=== PATIENT | male | born 1990 | race Hispanic/Latino ===

== ENCOUNTER 2019-11-13 12:26 | Emergency (ER) | payer SELFPAY ==
--- NOTE | ~2019-11-13 | XR_ITS ---
EXAMINATION: XR wrist RT min 3V INDICATION: Right wrist pain, initial encounter TECHNIQUE: Four views of the right wrist are obtained. COMPARISON: None available FINDINGS: There is a transverse lucency in the proximal pole of the scaphoid, consistent with acute, nondisplaced fracture No additional acute osseous abnormality is identified. Wrist soft tissue swelli ng is present. The joint spaces are maintained. IMPRESSION: 1. Acute nondisplaced fracture of the proximal scaphoid. Reviewed, dictated and finalized at location A.
--- NOTE | 2019-11-13 12:32 | ED.GENADULT ---
HPI - General Adult General Chief complaint: Extremity Injury, Upper Stated complaint: right wrist pain Time Seen by Provider: 11/13/19 12:32 Source: patient Mode of arrival: ambulatory Limitations: no limitations History of Present Illness HPI narrative: 29-year-old male patient presents to the [facility] with complaints of right wrist pain since yesterday. Patient states that he fell off of a horse yesterday. Patient denies hitting his head or loss of consciousness. Patient states that since then his right wrist has been very painful rates it 10 out of 10. Patient is right-hand dominant. Patient states he has not taken anything for pain including no Tylenol and no ibuprofen. Denies icing it. Patient states he is not having any numbness or tingling to the fingertips at this time. Related Data Allergies Allergy/AdvReac Type Severity Reaction Status Date / Time No Known Allergies Allergy Verified 11/13/19 12:38 Review of Systems Review of Systems: Narrative: CONSTITUTIONAL: Denies fever, chills, or sweats. EYES: Denies visual changes, redness, or discharge. ENT: Denies rhinorrhea, congestion, sore throat, or otalgia. CARDIOVASCULAR: Denies chest pain, palpitations, or edema. RESPIRATORY: Denies cough or dyspnea. GASTROINTESTINAL: Denies abdominal pain, nausea, vomiting, or diarrhea. GENITOURINARY: Denies dysuria or hematuria. SKIN: Denies rash or itching. MUSCULOSKELETAL: Denies back pain, joint pain, or myalgia. Positive right wrist pain NEUROLOGIC: Denies headache, numbness, or weakness. PSYCHIATRIC: Denies anxiety or depression. PMFSH Social History Social History Gender identity (if verbalized by the patient): Male Comments At the time of my signature I agree with nursing past medical history, surgical, social, and family history. There is no relevant family history pertinent to the presenting complaint. Exam Narrative: Exam Narrative: GENERAL: Well-appearing, well-nourished, and in no acute distress. HEAD: Normocephalic, atraumatic. EYES: PERRLA and EOMI. ENT: Nares clear, no rhinorrhea or epistaxis. Mucous membranes moist. NECK: Supple. No lymphadenopathy CHEST: Clear to auscultation. No respiratory distress. HEART: Regular rate and rhythm. No murmur heard. Normal peripheral pulses. ABDOMEN: Soft, nontender, nondistended, normal active bowel sounds. EXTREMITIES: The R wrist is without obvious asymmetry or deformity when compared to the L wrist. No surface trauma, open wounds, or obvious deformity. There is some slight swelling noted to the wrist over the ulnar side with tenderness on palpation to this area. No overlying erythema or warmth. No bony crepitus or focal area of TTP. No scaphoid fullness or tenderness to direct palpation or axial load. Pain with flex/extension, normal ulnar/radial deviation. Motor/sensory function of ulnar, radial, median nerves intact. Ulnar and radial pulses intact. Patient has decreased hand grasp to the right hand as compared to the left. SKIN: Warm, dry, no rash. NEURO: No focal deficits. Alert and oriented x3. Course Reevaluation(s) Reevaluation #1: Reevaluated patient. Discussed with him that it does appear that he has a scaphoid fracture to the right wrist. Discussed with patient that he will need to follow-up with an orthopedic surgeon for this many times and may require surgery for more further evaluation and close follow-up with orthopedic surgeon. Discussed with him we will go ahead and put him in a bulbar splint and I will refer him to the orthopedic surgeon that is on-call today and that he needs to call the office tomorrow and let them know that he needs a follow-up appointment. This patient still complaining about pain and states he needs something for pain. Discussed with him I will give him a couple days worth of tramadol to help with the pain otherwise he can take Tylenol I would refrain from ibuprofen until he s
[2019-11-13 12:37] VITALS: BP 124/88; PULSE 70; RESP 16; TEMP 37.2; O2SAT 100
[2019-11-13] MEDS: ACETAMINOPHEN 500 MG TABLET 1000 MG PO (12:45)
== END 2019-11-13 13:17 | disposition home or self-care (01) ==
PROVIDERS: Emergency Provider Nurse Practitioner Family
DX: S62.001A Unspecified fracture of navicular [scaphoid] bone of right wrist, initial encounter for closed fracture (principal); V80.010A Animal-rider injured by fall from or being thrown from horse in noncollision accident, initial encounter
CPT/HCPCS: 29125; 73110; 99204; A9270; G0463